=== PATIENT | male | born 1990 | race Caucasian/White ===

== ENCOUNTER 2021-09-16 19:34 | Emergency (ER) | payer OTHER ==
[2021-09-16] MEDS ORDERED: AUGMENTIN 875-1 EACH PO (21:58)
[2021-09-16] MEDS ORDERED: CLEOCIN300 MG PO (22:16)
== END 2021-09-16 22:32 | disposition home or self-care (01) ==
LOC: FER 19:34
DX: K08.89 Other specified disorders of teeth and supporting structures (principal)
CPT/HCPCS: 99282; J1885

== ENCOUNTER 2021-09-19 17:19 | Emergency (ER) | payer OTHER ==
[~2021-09-19 17:19] MED LIST: AUGMENTIN 875-1 EACH PO; CLEOCIN300 MG PO
[2021-09-19 20:40] LABS: BASOPHIL 0.4 % (0-2); EOSINOPHIL 0.4 % (0-5); HCT 37.9 % (42.0-52.0); LYMPHOCYTE 4.3 % (15-48); MCH 29.3 pg (25.0-31.0); MCHC 34.3 g/dL (32.0-36.0); MCV 85.4 fL (78.0-100.0); MPV 9.3 fL (6.0-9.5); NEUTROPHIL 83.4 % (41-80); NRBC 0; PLT 292 K/uL (150-400); RBC 4.44 M/uL (4.70-6.00); RDW 11.8 % (11.5-14.0); WBC 7.8 K/uL (4.0-10.5)
[2021-09-19 20:59] LABS: POTASSIUM 3.8 mmol/L (3.5-5.1)
[2021-09-19 20:59] LABS: INFLUENZA A NAA NEGATIVE (NEGATIVE)
[2021-09-19 21:03] LABS: CORONAVIRUS 2019 SARS-COV-2 POSITIVE (NEGATIVE)
== END 2021-09-19 22:17 | disposition home or self-care (01) ==
LOC: FER 17:19
PROVIDERS: Internal Medicine
DX: U07.1 COVID-19 (principal); Z88.0 Allergy status to penicillin
CPT/HCPCS: 36415; 71045; 80048; 84145; 85025; U0002